=== PATIENT | female | born 1990 | race Caucasian/White ===

== ENCOUNTER 2017-06-13 07:19 | Day surgery (SDC) | payer OTHER ==
[~2017-06-13] VITALS: Ht 160 cm; Wt 52.6 kg
[2017-06-13] MEDS ORDERED: PROPOFOL 200 MG/20 ML VIAL IV ONE (09:41)
[2017-06-13] MEDS ORDERED: ONDANSETRON 4 MG/2 ML VIAL IVP PRN (10:05)
[2017-06-13] MEDS ORDERED: HYDROmorphone PFS 2 MG/ML SYR IVP PRN (10:05)
[2017-06-13] MEDS ORDERED: HYDROcodone/APAP 5/325 MG 1 TAB TAB PO PRN (10:50)
[2017-06-13] MEDS ORDERED: ACETAMINOPHEN 325 MG TAB PO PRN (10:50)
[2017-06-13] MEDS ORDERED: ONDANSETRON 4 MG/2 ML VIAL IV PRN (10:50)
[2017-06-13] MEDS ORDERED: MORPHINE SULFATE 4 MG/ML SYR IV PRN (10:50)
[2017-06-13] MEDS ORDERED: MORPHINE SULFATE 4 MG/ML SYR IVP PRN (10:50)
== END 2017-06-13 11:51 | disposition home or self-care (01) ==
LOC: MDS 07:19 → MMU 07:19 → MDS 11:51
PROVIDERS: ATTEND Surgery
DX: K62.5 Hemorrhage of anus and rectum (principal); K56.41 Fecal impaction; K64.8 Other hemorrhoids; K21.9 Gastro-esophageal reflux disease without esophagitis; E66.3 Overweight; J45.909 Unspecified asthma, uncomplicated; I12.9 Hypertensive chronic kidney disease with stage 1 through stage 4 chronic kidney disease, or unspecified chronic kidney disease; N18.9 Chronic kidney disease, unspecified; E11.22 Type 2 diabetes mellitus with diabetic chronic kidney disease; F03.90 Unspecified dementia, unspecified severity, without behavioral disturbance, psychotic disturbance, mood disturbance, and anxiety; G40.909 Epilepsy, unspecified, not intractable, without status epilepticus; Z98.51 Tubal ligation status; F17.210 Nicotine dependence, cigarettes, uncomplicated
CPT/HCPCS: 45378; 71045; J0690; J2704; J7030; J7060; J7120